=== PATIENT | female | born 1980 | race Caucasian/White ===

== ENCOUNTER 2020-05-28 23:03 | Emergency (ER) | payer BC ==
--- NOTE | 2020-05-28 23:38 | EDM.PDOC ---
ED HPI GENERAL MEDICAL PROBLEM - General Chief Complaint: Behavioral/Psych Stated Complaint: BROUGHT IN WITH [facility] Time Seen by Provider: 05/28/20 23:21 - History of Present Illness INITIAL COMMENTS - FREE TEXT/NARRATIVE: Patient is a 39-year-old female who presents with the [facility] [employer] [facility] with suicidal ideation. Patient reports that for the last 20 years she has struggled with suicidal ideation. She states that in the past she has walked along a truck route with a plan to jump in front of a tractor trailer. She states that " it was not that bad tonight but it was close." The patient told the police that if she were left alone tonight she would likely kill herself. She states this to me as well. She is tearful. She denies active alcohol or drug use. She states that her is mentally abusive and manipulative. She states that she does not feel safe at home. When asked about auditory or visual hallucinations she states that she does not hear voices "except that one time Satan told me to kill myself." - Related Data Allergies Allergy/AdvReac Type Severity Reaction Status Date / Time No Known Allergies Allergy Verified 05/28/20 23:33 Home Meds: Home Meds ALPRAZolam [Xanax] 0.25 mg PO QID PRN 05/28/20 [History] buPROPion HCL [Wellbutrin Sr] 400 mg PO DAILY 05/28/20 [History] hydroCHLOROthiazide [Hydrochlorothiazide] 25 mg PO DAILY 05/28/20 [History] ED ROS GENERAL - Review of Systems Review Of Systems: See Below Free Text/Narrative/Comment: General: No fever. Skin: No rash. Eyes: No vision problems. ENT: No sore throat. Neck: No neck stiffness. Respiratory: No shortness of breath. Cardiac: No chest pain. Gastrointestinal: No nausea, vomiting or abdominal pain. Urinary: No dysuria. Musculoskeletal: No myalgias/arthralgias. Neurologic: No headache. ED EXAM, GENERAL - Physical Exam Exam: See Below Free Text/Narrative:: General Appearance: No acute distress, appears comfortable Skin: No rash HEENT: Normocephalic/atraumatic, sclera anicteric, mucous membranes moist Neck: Normal range of motion Chest and Lungs: Bilateral breath sounds, clear to auscultation Cardiovascular: Regular rate and rhythm, no murmur Abdomen: Soft, non-tender Back: Normal Musculoskeletal: No edema or tenderness Neurologic: Awake, alert, no obvious deficits, moving all extremities Psychiatric: Tearful, depressed mood, appropriate affect, active suicidal ideation, no signs of internal stimuli, no homicidal ideation EKG INTERPRETATION EKG Interpretation Comments: EKG obtained at 0016 demonstrates normal sinus rhythm with a rate of 84 QTC is 462 normal axis no acute ischemia Course - Vital Signs Last Recorded V/S: Last Vital Signs Temp 98.2 F 05/29/20 10:49 Pulse 82 05/29/20 10:49 Resp 17 05/29/20 10:49 BP 162/101 H 05/29/20 10:49 Pulse Ox 98 05/29/20 10:49 - Orders/Labs/Meds Labs: Laboratory Tests 05/28/20 05/28/20 05/28/20 Range/Units 23:42 23:42 23:45 WBC 15.10 H (4.0-11.0) K/uL RBC 5.00 (4.30-5.90) M/uL Hgb 14.7 (12.0-16.0) g/dL Hct 44.9 (36.0-46.0) % MCV 89.8 (80.0-98.0) fL MCH 29.4 (27.0-32.0) pg MCHC 32.7 (31.0-37.0) g/dL RDW Std Deviation 45.2 (28.0-62.0) fl RDW Coeff of Darshan 14 (11.0-15.0) % Plt Count 319 (150-400) K/uL MPV 9.40 (7.40-12.00) fL Neut % (Auto) 73.2 (48.0-80.0) % Lymph % (Auto) 16.6 (16.0-40.0) % Chester % (Auto) 9.1 (0.0-15.0) % Eos % (Auto) 0.8 (0.0-7.0) % Baso % (Auto) 0.3 (0.0-1.5) % Neut # (Auto) 11.1 H (1.4-5.7) K/uL Lymph # (Auto) 2.5 H (0.6-2.4) K/uL Chester # (Auto) 1.4 H (0.0-0.8) K/uL Eos # (Auto) 0.1 (0.0-0.7) K/uL Baso # (Auto) 0.1 (0.0-0.1) K/uL Nucleated RBC % 0.0 /100WBC Nucleated RBCs # 0 K/uL Sodium 140 (136-145) mmol/L Potassium 3.5 (3.5-5.1) mmol/L Chloride 104 (98-107) mmol/L Carbon Dioxide 27.4 (21.0-32.0) mmol/L BUN 18 (7.0-18.0) mg/dL Creatinine 1.2 H (0.6-1.0) mg/dL Est Cr Clr Drug Dosing TNP Estimated GFR (MDRD) 49.8 ml/min Glucose 94 (74-106) mg/dL Calcium 9.7 (8.5-10.1) mg/dL Total Bilirubin 0.2 (0.2-1.0) mg/dL AST 19 (15-37) IU/L ALT 23 (14-63) IU/L Alkaline Phosphatase 63 (46-116) U/L Total Protein 7.5 (6.4-8.2) g/dL Albumin 4.0 (3.4-5.0) g/dL Globulin 3.5 (2.6-4.0) g/dL Albumin/Globulin Ratio 1.1 (0.9-1.6) Urine HCG, Qual NEGATIVE (NEGATIVE) Urine Opiates Screen (NEGATIVE) Ur Oxycodone Screen (NEGATIVE) Urine Methadone Screen (NEGATIVE) Ur Barbiturates Screen (NEGATIVE) Ur Phencyclidine Scrn (NEGATIVE) Ur Amphetamine Screen (NEGATIVE) U Methamphetamines Scrn (NEGATIVE) U Benzodiazepines Scrn (NEGATIVE) U Cocaine Metab Screen (NEGATIVE) U Marijuana (THC) Screen (NEGATIVE) Ethyl Alcohol 4 mg/dL 05/28/20 Range/Units 23:45 WBC (4.0-11.0) K/uL RBC (4.30-5.90) M/uL Hgb (12.0-16.0) g/dL Hct (36.0-46.0) % MCV (80.0-98.0) fL MCH (27.0-32.0) pg MCHC (31.0-37.0) g/dL RDW Std Deviation (28.0-62.0) fl RDW Coeff of Darshan (11.0-15.0) % Plt Count (150-400) K/uL MPV (7.40-12.00) fL Neut % (Auto) (48.0-80.0) % Lymph % (Auto) (16.0-40.0) % Chester % (Auto) (0.0-15.0) % Eos % (Auto) (0.0-7.0) % Baso % (Auto) (0.0-1.5) % Neut # (Auto) (1.4-5.7) K/uL Lymph # (Auto) (0.6-2.4) K/uL Chester # (Auto) (0.0-0.8) K/uL Eos # (Auto) (0.0-0.7) K/uL Baso # (Auto) (0.0-0.1) K/uL Nucleated RBC % /100WBC Nucleated RBCs # K/uL Sodium (136-145) mmol/L Potassium (3.5-5.1) mmol/L Chloride (98-107) mmol/L Carbon Dioxide (21.0-32.0) mmol/L BUN (7.0-18.0) mg/dL Creatinine (0.6-1.0) mg/dL Est Cr Clr Drug Dosing Estimated GFR (MDRD) ml/min Glucose (74-106) mg/dL Calcium (8.5-10.1) mg/dL Total Bilirubin (0.2-1.0) mg/dL AST (15-37) IU/L ALT (14-63) IU/L Alkaline Phosphatase (46-116) U/L Total Protein (6.4-8.2) g/dL Albumin (3.4-5.0) g/dL Globulin (2.6-4.0) g/dL Albumin/Globulin Ratio (0.9-1.6) Urine HCG, Qual (NEGATIVE) Urine Opiates Screen NEGATIVE (NEGATIVE) Ur Oxycodone Screen NEGATIVE (NEGATIVE) Urine Methadone Screen NEGATIVE (NEGATIVE) Ur Barbiturates Screen NEGATIVE (NEGATIVE) Ur Phencyclidine Scrn NEGATIVE (NEGATIVE) Ur Amphetamine Screen NEGATIVE (NEGATIVE) U Methamphetamines Scrn NEGATIVE (NEGATIVE) U Benzodiazepines Scrn NEGATIVE (NEGATIVE) U Cocaine Metab Screen NEGATIVE (NEGATIVE) U Marijuana (THC) Screen NEGATIVE (NEGATIVE) Ethyl Alcohol mg/dL Meds: Medications Discontinued Medications Generic Name Dose Route Start Last Admin Trade Name Coleman PRN Reason Stop Dose Admin Acetaminophen 975 mg 05/29/20 10:48 05/29/20 10:58 Tylenol PO 05/29/20 10:49 975 mg NOW ONE Administration Acetaminophen/Butalbital/Caffeine 1 tab 05/29/20 00:48 05/29/20 01:00 Fioricet 325-50-40 Mg PO 05/29/20 00:49 1 tab ONETIME ONE Administration Ibuprofen 600 mg 05/29/20 10:48 05/29/20 10:57 Motrin PO 05/29/20 10:49 600 mg ONETIME ONE Administration Lorazepam 1 mg 05/29/20 10:48 05/29/20 10:58 Ativan PO 05/29/20 10:49 1 mg ONETIME ONE Administration Risperidone 1 mg 05/30/20 10:49 05/29/20 11:20 Risperidal PO 05/30/20 10:50 1 mg ONETIME ONE Administration Departure - Departure Time of Disposition: 12:00 Disposition: DC/Tfer to Acute Hospital 02 Condition: Good Clinical Impression: Suicidal ideation - Discharge Information *PRESCRIPTION DRUG MONITORING PROGRAM REVIEWED*: Not Applicable *COPY OF PRESCRIPTION DRUG MONITORING REPORT IN PATIENT MICHAEL: Not Applicable Referrals: PCP,Not In Area [Primary Care Provider] - Forms: ED Department Discharge Sepsis Event Note (ED) - Evaluation Sepsis Screening Result: No Definite Risk - Focused Exam Vital Signs: Vital Signs Temp Pulse Resp BP Pulse Ox 05/29/20 10:49 98.2 F 82 17 162/101 H 98 - Assessment/Plan Assessment:: 39-year-old female presenting with active suicidal ideation. It sounds like patient does have a history of psychosis but does not appear actively psychotic at this time. That said she is clearly actively suicidal. Right now she is amenable to voluntary psychiatric care and we will explore voluntary admission. However, I believe I do have grounds for involuntary residential should she change her mind. Screening blood work and EKG have been ordered and will discuss with psychiatry. Patient's EKG and labs are unremarkable patient with a minimal leukocytosis but no infectious signs or symptoms no indication for further evaluation based on this. Patient is medically cleared for psychiatric admission. We are exploring admission possibilities. Patient reports she has a mild headache Fioricet or dered for this. No fever no neck pain or stiffness no meningismus nothing to suggest meningitis. 0700: Pt signed out to Dr. Carrion pending final disposition and anticipated psychiatric admission.
[2020-05-29 00:05] LABS: BLOOD UREA NITROGEN,BUN 18 mg/dL (7.0-18.0); CARBON DIOXIDE,CO2 27.4 mmol/L (21.0-32.0); CHLORIDE,CL 104 mmol/L (98-107); GLUCOSE RANDOM 94 mg/dL (74-106); POTASSIUM,K 3.5 mmol/L (3.5-5.1); SODIUM,NA 140 mmol/L (136-145)
[2020-05-29] MEDS ORDERED: Acetaminophen/Butalbital/Caffeine 325-50-40 MG Tab PO ONE (00:48)
[2020-05-29] MEDS ORDERED: Ibuprofen 600 MG Tab PO ONE (10:48)
[2020-05-29] MEDS ORDERED: Acetaminophen 325 MG Tab PO ONE (10:48)
[2020-05-29] MEDS ORDERED: LORazepam 1 MG Tab PO ONE (10:48)
[2020-05-30] MEDS ORDERED: risperiDONE 1 MG Tab PO ONE (10:49)
== END 2020-05-29 12:00 ==
LOC: MW.ED 23:03
DX: R45.851 Suicidal ideations (principal)
CPT/HCPCS: 36415; 80053; 80305; 80307; 81025; 85025; 93005; 99285; A9270; 99284